=== PATIENT | female | born 1995 | race Two or more races ===

== ENCOUNTER 2020-12-08 08:25 | Emergency (ER) | payer MEDICAID, OTHER ==
[~2020-12-08] VITALS: Ht 162.6 cm; Wt 60.3 kg
[2020-12-08 09:14] LABS: Basophils # (auto) 0.1 10 ^3/uL (0-0.2); Basophils % (auto) 0.5 % (0.0-2.0); Eosinophils # (auto) 0.1 10 ^3/uL (0-0.8); Hematocrit 39.1 % (36.0-46.0); Hemoglobin 13.3 g/dL (12.2-16.2); Lymphocytes % (auto) 19.7 % (10.0-50.0); Mean Corpuscular Hgb Conc. 33.9 g/dL (32.0-36.0); Mean Corpuscular Volume 82.8 fL (80.0-100.0); Monocytes # (auto) 0.7 10 ^3/uL (0-1.3); Monocytes % (auto) 6.5 % (0.0-12.0); Neutrophils # (auto) 7.3 10 ^3/uL (1.6-8.6); Neutrophils % (auto) 72.3 % (37.0-80.0); Platelet Count (auto) 251 10^3/uL (140-450); Red Blood Cells 4.73 10^6/uL (4.0-5.20); Red Cell Distribution Width 12.2 % (11.8-14.3)
[2020-12-08 09:21] LABS: Urine Bacteria NONE SEEN /hpf (None Seen); Urine Blood 3+ /uL (Negative); Urine Hyaline Cast FEW /lpf (0 - 2); Urine Mucus FEW (None Seen); Urine Specific Gravity 1.022 (1.001-1.035); Urine WBC 14 /hpf (0 - 5)
[2020-12-08 11:00] VITALS: BP 124/76
== END 2020-12-08 11:33 | disposition home or self-care (01) ==
LOC: ER 08:25
DX: O02.1 Missed abortion (principal); Z3A.01 Less than 8 weeks gestation of pregnancy
CPT/HCPCS: 36415; 76801; 76817; 81001; 84702; 85025

== ENCOUNTER 2021-10-23 18:54 | Emergency (ER) | payer SELFPAY ==
[~2021-10-23] VITALS: Ht 162.6 cm; Wt 61.7 kg
[2021-10-23 19:38] LABS: Basophils # (auto) 0 10 ^3/uL (0-0.2); Eosinophils # (auto) 0.1 10 ^3/uL (0-0.8); Eosinophils % (auto) 1.3 % (0.0-7.0); Hematocrit 35.7 % (36.0-46.0); Lymphocytes # (auto) 1.4 10 ^3/uL (0.4-5.4); Lymphocytes % (auto) 15.7 % (10.0-50.0); Mean Corpuscular Hemoglobin 27.1 pg (28.0-32.0); Mean Corpuscular Hgb Conc. 33.7 g/dL (32.0-36.0); Mean Corpuscular Volume 80.5 fL (80.0-100.0); Monocytes # (auto) 0.6 10 ^3/uL (0-1.3); Monocytes % (auto) 6.6 % (0.0-12.0); Neutrophils # (auto) 6.9 10 ^3/uL (1.6-8.6); Neutrophils % (auto) 76.4 % (37.0-80.0); Nucleated Red Blood Cells % 0.1 %; Red Blood Cells 4.43 10^6/uL (4.0-5.20); Red Cell Distribution Width 12.3 % (11.8-14.3); White Blood Cell 9.1 10^3/uL (4.4-10.8)
[2021-10-23 19:55] LABS: Albumin 3.9 g/dL (3.4-5.0); Calcium 8.5 mg/dL (8.5-10.1); Potassium 3.5 mmol/L (3.5-5.1)
[2021-10-23 19:57] LABS: BUN/Creatinine Ratio 13.3
[2021-10-23 19:59] LABS: Bilirubin, Total 0.8 mg/dL (0.2-1.0); Total Protein 7.3 g/dL (6.4-8.2)
[2021-10-23 20:15] VITALS: BP 102/72
[2021-10-23 20:30] LABS: Urine Bacteria NONE SEEN /hpf (None Seen); Urine Blood Negative /uL (Negative); Urine Mucus FEW (None Seen); Urine Specific Gravity 1.028 (1.001-1.035); Urine WBC 242 /hpf (0 - 5)
[2021-10-23] MEDS ORDERED: NITR-87 PO (20:45)
[2021-10-23] MEDS ORDERED: NITROFURANTOIN 100 mg CAP PO ONE ×2 (20:45→20:56)
== END 2021-10-23 21:35 | disposition home or self-care (01) ==
LOC: ER 18:55
DX: N39.0 Urinary tract infection, site not specified (principal); F12.10 Cannabis abuse, uncomplicated
CPT/HCPCS: 36415; 80053; 81001; 85025

== ENCOUNTER 2021-10-29 21:33 | Emergency (ER) | payer MEDICAID, OTHER ==
[~2021-10-29] VITALS: Ht 162.6 cm; Wt 63.5 kg
[~2021-10-29 21:33] MED LIST: NITR-87 PO
[2021-10-29 23:08] LABS: Basophils # (auto) 0.1 10 ^3/uL (0-0.2); Basophils % (auto) 1.1 % (0.0-2.0); Eosinophils # (auto) 0.2 10 ^3/uL (0-0.8); Eosinophils % (auto) 2.3 % (0.0-7.0); Hematocrit 35.9 % (36.0-46.0); Hemoglobin 12.4 g/dL (12.2-16.2); Lymphocytes # (auto) 2.1 10 ^3/uL (0.4-5.4); Lymphocytes % (auto) 20.7 % (10.0-50.0); Mean Corpuscular Hemoglobin 27.1 pg (28.0-32.0); Mean Corpuscular Hgb Conc. 34.5 g/dL (32.0-36.0); Mean Corpuscular Volume 78.5 fL (80.0-100.0); Monocytes # (auto) 0.6 10 ^3/uL (0-1.3); Neutrophils # (auto) 7.2 10 ^3/uL (1.6-8.6); Neutrophils % (auto) 69.9 % (37.0-80.0); Nucleated Red Blood Cells % 0.2 %; Red Blood Cells 4.58 10^6/uL (4.0-5.20); Red Cell Distribution Width 12.3 % (11.8-14.3); White Blood Cell 10.3 10^3/uL (4.4-10.8)
[2021-10-29 23:12] LABS: Urine Bacteria NONE SEEN /hpf (None Seen); Urine Blood TRACE /uL (Negative); Urine Mucus FEW (None Seen); Urine Specific Gravity 1.007 (1.001-1.035); Urine WBC 36 /hpf (0 - 5)
[2021-10-29 23:26] LABS: Albumin 3.9 g/dL (3.4-5.0); BUN/Creatinine Ratio 12.5; Calcium 9.2 mg/dL (8.5-10.1); Potassium 3.9 mmol/L (3.5-5.1)
[2021-10-29 23:28] LABS: Bilirubin, Total 0.3 mg/dL (0.2-1.0); Total Protein 7.4 g/dL (6.4-8.2)
[2021-10-30] MEDS ORDERED: CEPH-509 PO
[2021-10-30 00:15] VITALS: BP 111/72
== END 2021-10-30 00:51 | disposition home or self-care (01) ==
LOC: ER 21:34
DX: N39.0 Urinary tract infection, site not specified (principal); R11.0 Nausea; Z79.899 Other long term (current) drug therapy
CPT/HCPCS: 36415; 80053; 81001; 84702; 85025

== ENCOUNTER 2022-08-22 15:39 | Emergency (ER) | payer MEDICAID ==
[~2022-08-22] VITALS: Ht 162.6 cm; Wt 58.4 kg
[~2022-08-22 15:39] MED LIST changes: +CEPH-509 PO
[2022-08-22 15:57] VITALS: BP 108/72
[2022-08-22] MEDS ORDERED: ACETAMINOPHEN 500 MG TAB PO ONE (16:00)
[2022-08-22] MEDS ORDERED: IBUP600T28 PO (23:00)
[2022-08-22] MEDS ORDERED: ACET-1158 PO (23:00)
== END 2022-08-22 23:32 | disposition left against medical advice (07) ==
LOC: ER 15:39
DX: J02.8 Acute pharyngitis due to other specified organisms (principal); R51.9 Headache, unspecified; Z20.822 Contact with and (suspected) exposure to COVID-19
CPT/HCPCS: 36415; 87426; 87804